=== PATIENT | male | born 2000 | race Caucasian/White ===

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

== ENCOUNTER 2022-02-04 18:58 | Emergency (ER) | payer BC, SELFPAY ==
[2022-02-04 19:04] VITALS: BP 145/61; PULSE 67; RESP 16; TEMP 36.7; O2SAT 100
--- NOTE | 2022-02-04 19:45 | ED.EAR ---
HPI - Ear Problem General Chief complaint: Ear Stated complaint: Left Ear Pain Source: patient Mode of arrival: ambulatory Limitations: no limitations History of Present Illness HPI Narrative: Patient presents for evaluation of left-sided ear pain. Symptom onset today. He has muffled hearing in the affected ear. Denies tinnitus. Denies any infectious symptoms including fever, chills, sore throat, cough. He is wondering if he has an ear infection or if his ear is clogged . He has not taken any medication for symptoms. No history of similar symptoms. No additional complaints or concerns Related Data Allergies Allergy/AdvReac Type Severity Reaction Status Date / Time No Known Allergies Allergy Verified 02/04/22 19:08 Review of Systems Review of Systems: CONSTITUTIONAL: Denies fever, chills, or sweats. EYES: Denies visual changes, redness, or discharge. ENT: Reports left-sided ear pain with decreased hearing in the affected ear. Denies sinus congestion, sore throat, tinnitus, drainage from the ear. CARDIOVASCULAR: Denies chest pain, palpitations, or edema. RESPIRATORY: Denies cough or dyspnea. GASTROINTESTINAL: Denies abdominal pain, nausea, vomiting, or diarrhea. GENITOURINARY: Denies dysuria or hematuria. SKIN: Denies rash or itching. MUSCULOSKELETAL: Denies back pain, joint pain, or myalgia. NEUROLOGIC: Denies headache, numbness, dizziness, or weakness. PSYCHIATRIC: Denies anxiety or depression. [facility] Past Medical History Medical History (Updated 02/04/22 @ 19:47 by Otoniel Cabrera, [facility], ) History of tonsillitis Surgical History Surgical History History of tonsillectomy Family History Family History Mother Family history non-contributory Social History Social History Smoking status: Never smoker Substance use: never Living arrangements: with family Gender identity (if verbalized by the patient): Male Exam Narrative: GENERAL: Well-appearing, well-nourished, and in no acute distress. HEAD: Normocephalic, atraumatic. EYES: PERRLA and EOMI. ENT: Nares clear, no rhinorrhea or epistaxis. Mucous membranes moist. Oropharynx without tonsillar hypertrophy exudate or other lesions. Ear canals are ceruminous bilaterally NECK: Supple. No adenopathy or masses. No carotid bruits or JVD CHEST: Clear to auscultation. No respiratory distress. No wheezes rales or rhonchi HEART: Regular rate and rhythm. No murmur heard. Normal peripheral pulses. ABDOMEN: Soft, nontender, nondistended, normal active bowel sounds. EXTREMITIES: Normal range of motion. No edema. SKIN: Warm, dry, no rash. NEURO: No focal deficits. Alert and oriented x3. PSYCH: Normal mood and affect. Course Course Emergency Course: This is a 21-year-old male who presented for evaluation of left-sided ear pain with decreased hearing. He has a cerumen impaction noted. I irrigated his ear using half-strength hydrogen peroxide. Cerumen impaction was removed. Small amount of bleeding was noted in the ear canal. Will discharge with Cipro otic. I offered to irrigate the right ear. He declined. We will also send Debrox so he can do at home. Follow-up outpatient for further evaluation and treatment and return for worsening symptoms. Patient in agreement with plan of care. Level of Care: Express Care Visit Vital Signs Vital signs: Vital Signs Temperature 36.7 C 02/04/22 19:04 Pulse Rate 67 02/04/22 19:04 Respiratory Rate 16 02/04/22 19:04 Blood Pressure 145/61 H 02/04/22 19:04 Pulse Oximetry 100 02/04/22 19:04 Oxygen Delivery Room Air 02/04/22 19:04 Temperature 36.7 C 02/04/22 19:04 Pulse Rate 67 02/04/22 19:04 Respiratory Rate 16 02/04/22 19:04 Blood Pressure 145/61 H 02/04/22 19:04 Pulse Oximetry 100 02/04/22 19:04 Oxy
== END 2022-02-04 19:44 | disposition home or self-care (01) ==
PROVIDERS: Emergency Provider Nurse Practitioner
DX: H61.23 Impacted cerumen, bilateral (principal)
CPT/HCPCS: 69209; 99213; G0463

== ENCOUNTER 2022-02-22 19:15 | Emergency (ER) | payer BC, SELFPAY ==
[2022-02-22 19:25] VITALS: BP 138/58; PULSE 62; RESP 16; TEMP 36.7; O2SAT 99
--- NOTE | 2022-02-22 19:27 | ED.EYEPROB ---
HPI - Eye Problem General Chief complaint: Eye Problems Stated complaint: FB in left eye Time Seen by Provider: 02/22/22 19:27 Source: patient Mode of arrival: ambulatory Limitations: no limitations History of Present Illness HPI Narrative: 21-year-old male presented with mother for complaint of left eye pain. He states he was working under his car just prior to arrival when something fell into the left eye. He states it could have been rust or metal. Endorses pain when opening the eye and constant clear tearing, FB sensation, and photophobia. Does not wear contacts. Tried rinsing the eye at home after incident. chief complaint: eye pain Related Data Allergies Allergy/AdvReac Type Severity Reaction Status Date / Time No Known Allergies Allergy Verified 02/22/22 19:28 Review of Systems Review of Systems: CONSTITUTIONAL: Denies body aches, fever, chills EYES: Endorses redness and pain to left eye with FB sensation, photophobia Denies visual changes ENT: Denies rhinorrhea, congestion, sore throat, or otalgia. CARDIOVASCULAR: Denies chest pain, palpitations RESPIRATORY: Denies cough or dyspnea. SKIN: Denies rash, itching, or wounds. NEUROLOGIC: Denies headache All systems reviewed & are unremarkable except as noted in HPI and below PMFSH Past Medical History Medical History History of tonsillitis Surgical History Surgical History History of tonsillectomy Family History Family History Mother Family history non-contributory Social History Social History Smoking status: Never smoker Substance use: never Gender identity (if verbalized by the patient): Male Comments At time of signature, I have reviewed and agree with nursing past medical, surgical, social and family history unless otherwise noted. Please see nursing chart for further information. There is no relevant family history pertinent to the presenting complaint Exam Narrative: GENERAL: Well-appearing HEAD: Normocephalic, atraumatic. EYES: Left conjunctival injection, no eye lid swelling EOMI. Lid eversion showed no FB. ENT: Mucous membranes pink and moist. No rhinorrhea. TMs normal bilaterally. Throat normal. Uvula midline. CHEST: Clear to auscultation. HEART: Regular rate and rhythm. SKIN: Warm, dry, no rash. Normal skin turgor. NEURO: Alert and oriented x3 Course Course Emergency Course: Patient is aware of diagnosis, understands and agrees to treatment plan. Anticipatory guidance given. Patient agrees to follow-up as directed and is aware of reasons to seek care at the emergency department. Portions of this record may have been created with voice recognition software Level of Care: Express Care Visit Procedures FB Removal Eye Foreign Body #1: Location: eye (L) Topical anesthetic used: tetracaine Technique: irrigation and eye wash bottle Patient tolerated procedure: well and no complications Foreign Body Removal Narrative: Pt able to open the eye completely once the tetracaine was administered. No FB on exam. No vision changes. PERRLA. Corneal abrasion to 3 o'clock position lateral to iris on sclera MDM - Eye Problem Differential Diagnosis Differential diagnosis: Likely corneal abrasion, conjunctivitis, acute iritis and other Discharge Plan Discharge Clinical Impression: Corneal abrasion Patient Disposition: Home, Self-Care Condition: Stable Instructions: Antibiotic Form, Corneal Abrasion (ED) Additional Instructions: Corneal abrasions will heal in 1-2 days. Do not touch or rub your eye Apply cold compresses as needed You may take Tylenol or ibuprofen for pain Take eye drops as directed Follow-up with PCP or caustic pump operator if condition
== END 2022-02-22 19:46 | disposition home or self-care (01) ==
PROVIDERS: Emergency Provider Nurse Practitioner Family; PCP Family Medicine
DX: S05.02XA Injury of conjunctiva and corneal abrasion without foreign body, left eye, initial encounter (principal); X58.XXXA Exposure to other specified factors, initial encounter; Z86.16 Personal history of COVID-19
CPT/HCPCS: 99213; A9270; G0463